=== PATIENT | female | born 1980 | race Caucasian/White ===

== ENCOUNTER 2023-07-18 17:38 | Inpatient (IN) ==
[2023-07-18] MEDS ORDERED: IOPAMIDOL 100 ML BOTTLE IV ONE (17:39)
[2023-07-18] MEDS: KETOROLAC 30 MG/ML VIAL IV ONE (18:11)
[2023-07-18 18:42] LABS: Basophils # (Auto) 0.02 K/mcL (0.00-0.30); Basophils % (Auto) 0.3 % (0.0-2.0); Eosinophils # (Auto) 0.09 K/mcL (0.00-0.70); Eosinophils % (Auto) 1.4 % (0.0-7.0); Hematocrit 32.3 % (34.1-44.9); Hemoglobin 10.4 g/dL (11.2-15.7); Mean Cell Volume 90.5 fL (80.0-100.0); Mean Corpuscular HGB Conc 32.2 g/dL (31.0-36.0); Monocytes # (Auto) 0.42 K/mcL (0.10-0.90); Monocytes % (Auto) 6.6 % (1.0-12.0); Neutrophils % (Auto) 61.4 % (38.0-78.0); Platelet Count 301 K/mcL (140-440); RBC 3.57 M/mcL (3.59-5.38); Red Cell Distribution Width 13.5 % (11.5-14.5); WBC 6.3 K/mcL (4.5-11.0)
[2023-07-18] MEDS: 0.9 % SODIUM CHLORIDE 1,000 ML IV ONE (19:08)
[2023-07-18 19:42] LABS: ALT/SGPT 11 U/L (<40); AST/SGOT 7 U/L (<32); Albumin 3.3 gm/dL (3.2-5.2); Alkaline Phosphatase 63 U/L (39-117); Bilirubin,Total < 0.2 mg/dL (0.1-1.0); Blood Urea Nitrogen 22 mg/dL (6-20); Calcium 9.3 mg/dL (8.6-10.4); Carbon Dioxide 25 mmol/L (22-30); Chloride 105 mmol/L (96-108); Globulin 3.2 gm/dL (2.2-3.7); Glomerular Filtration Rate 77; Glucose 131 mg/dL (70-105)
[2023-07-18] MEDS: PIPERACILLIN SODIUM/TAZOBACTAM 4.5 GM in DEXTROSE 5% IN WATER 50 ML IV ONE (19:51)
[2023-07-18] MEDS: GENTAMICIN SULFATE IV ONE (21:19)
[2023-07-18] MEDS: SODIUM CHLORIDE 0.9% IV ONE (21:19)
[2023-07-18] MEDS ORDERED: DEXTROSE 50% 50 ML VIAL IV PRN (22:00)
[2023-07-18] MEDS ORDERED: IPRATROPIUM/ALBUTEROL 3 ML AMPUL.NEB NEB PRN (22:00)
[2023-07-18] MEDS: VANCOMYCIN PER PHARMACY IV ONE (23:14)
[2023-07-18] MEDS: DEXTROSE 5%-LR 1,000 ML IV SCH (23:14)
[2023-07-18] MEDS: 0.9 % SODIUM CHLORIDE 10 ML SYRINGE IV SCH (23:16)
[2023-07-18] MEDS: INSULIN LISPRO 1 UNIT/0.01 ML UNIT SQ SCH (23:35)
[2023-07-18] MEDS: INSULIN LISPRO 1 UNIT/0.01 ML UNIT SQ ONE (23:36)
[2023-07-18] MEDS: VANCOMYCIN 1,000 MG in 0.9 % SODIUM CHLORIDE 250 ML IV ONE (23:36)
[2023-07-19] MEDS: morphine 4 MG/ML VIAL ONE (00:40)
[2023-07-19] MEDS: morphine 4 MG/ML VIAL IV PRN (00:41)
[2023-07-19] MEDS: PIPERACILLIN SODIUM/TAZOBACTAM 3.375 GM in DEXTROSE 5% IN WATER 50 ML IV SCH (02:26)
[2023-07-19] MEDS: INSULIN LISPRO 1 UNIT/0.01 ML UNIT SQ ONE (05:58)
[2023-07-19 06:24] LABS: Basophils # (Auto) 0.01 K/mcL (0.00-0.30); Basophils % (Auto) 0.2 % (0.0-2.0); Eosinophils # (Auto) 0.11 K/mcL (0.00-0.70); Eosinophils % (Auto) 2.1 % (0.0-7.0); Hematocrit 30.4 % (34.1-44.9); Hemoglobin 9.7 g/dL (11.2-15.7); Lymphocytes # (Auto) 1.93 K/mcL (1.50-4.80); Lymphocytes % (Auto) 36.1 % (15.5-49.0); Mean Cell Volume 90.2 fL (80.0-100.0); Mean Corpuscular HGB Conc 31.9 g/dL (31.0-36.0); Mean Platelet Volume 8.9 fL (8.8-12.5); Monocytes # (Auto) 0.42 K/mcL (0.10-0.90); Monocytes % (Auto) 7.9 % (1.0-12.0); Neutrophils % (Auto) 53.3 % (38.0-78.0); Platelet Count 281 K/mcL (140-440); RBC 3.37 M/mcL (3.59-5.38); Red Cell Distribution Width 13.4 % (11.5-14.5); WBC 5.4 K/mcL (4.5-11.0)
[2023-07-19] MEDS ORDERED: VANCOMYCIN PER PHARMACY IV SCH (06:30)
[2023-07-19 07:05] LABS: ALT/SGPT 10 U/L (<40); AST/SGOT 9 U/L (<32); Albumin 3.1 gm/dL (3.2-5.2); Albumin/Globulin Ratio 1.1 (1.0-2.3); Alkaline Phosphatase 55 U/L (39-117); Bilirubin,Total < 0.2 mg/dL (0.1-1.0); Blood Urea Nitrogen 21 mg/dL (6-20); Calcium 8.8 mg/dL (8.6-10.4); Carbon Dioxide 25 mmol/L (22-30); Chloride 107 mmol/L (96-108); Globulin 2.9 gm/dL (2.2-3.7); Glomerular Filtration Rate 77; Glucose 172 mg/dL (70-105)
[2023-07-19] MEDS: ACETAMINOPHEN 325 MG TABLET PO PRN (07:50)
[2023-07-19 07:53] LABS: Estimated Average Glucose(eAG) 154 mg/dL
[2023-07-19] MEDS: ONDANSETRON 4 MG/2 ML VIAL IV PRN (09:08)
[2023-07-19] MEDS: SPIRONOLACTONE 25 MG TABLET PO SCH (09:09)
[2023-07-19] MEDS: GABAPENTIN 100 MG CAPSULE PO SCH (09:09)
[2023-07-19] MEDS: CETIRIZINE 10 MG TABLET PO SCH (09:09)
[2023-07-19] MEDS: DULoxetine 30 MG CAPSULE PO SCH (09:09)
[2023-07-19] MEDS: LISINOPRIL 10 MG TABLET PO SCH (09:10)
[2023-07-19] MEDS: DOCUSATE SODIUM 100 MG CAPSULE PO SCH (09:13)
[2023-07-19] MEDS ORDERED: GADOBENATE DIMEGLUMINE 20 ML/VIAL IV ONE (11:00)
[2023-07-19] MEDS: PIPERACILLIN SODIUM/TAZOBACTAM 3.375 GM in DEXTROSE 5% IN WATER 100 ML IV SCH (11:23)
[2023-07-19] MEDS: PROCHLORPERAZINE 10 MG/2 ML VIAL IV PRN (11:23)
[2023-07-19] MEDS ORDERED: VANCOMYCIN 1,500 MG in 0.9 % SODIUM CHLORIDE 500 ML IV SCH (12:00)
[2023-07-19] MEDS ORDERED: IPRATROPIUM/ALBUTEROL 3 ML AMPUL.NEB NEB PRN ×2 (13:05→15:53)
[2023-07-19] MEDS ORDERED: KETAMINE 50 MG/ML Syringe IV ONE (13:58)
[2023-07-19] MEDS ORDERED: PROPOFOL 200 MG/20 ML VIAL IV ONE (13:58)
[2023-07-19] MEDS ORDERED: DEXAMETHASONE 10 MG/ML VIAL ONE (13:58)
[2023-07-19] MEDS ORDERED: ONDANSETRON 4 MG/2 ML VIAL ONE (13:58)
[2023-07-19] MEDS ORDERED: LIDOCAINE 2% PF 5 ML VIAL ONE (13:58)
[2023-07-19] MEDS ORDERED: MAGNESIUM SULFATE 2 GM/50 ML BAG IV ONE (15:32)
[2023-07-19] MEDS ORDERED: ONDANSETRON 4 MG/2 ML VIAL IV PRN (15:53)
[2023-07-19] MEDS ORDERED: MEPERIDINE 25 MG/ML VIAL IV PRN (15:53)
[2023-07-19] MEDS ORDERED: LACTATED RINGERS 250 ML IV PRN (15:53)
[2023-07-19] MEDS ORDERED: diphenhydrAMINE 50 MG/ML VIAL IV PRN (15:53)
[2023-07-19] MEDS ORDERED: fentaNYL 100 MCG/2 ML VIAL IV PRN (15:53)
[2023-07-19] MEDS ORDERED: NALOXONE HCL 0.4 MG/ML VIAL IV PRN (15:53)
[2023-07-19] MEDS ORDERED: PROMETHAZINE 25 MG/ML VIAL IV PRN (15:53)
[2023-07-19] MEDS: LACTATED RINGERS 1,000 ML IV SCH (18:06)
[2023-07-19] MEDS: INSULIN LISPRO 1 UNIT/0.01 ML UNIT SQ SCH (21:19)
[2023-07-19] MEDS: SENNOSIDES 1 TABLET PO SCH (21:20)
[2023-07-19] MEDS: 0.9 % SODIUM CHLORIDE 10 ML SYRINGE IV SCH (21:20)
[2023-07-20] MEDS: oxyCODONE IR 5 MG TABLET PO PRN ×2 (01:10→23:55)
[2023-07-20 06:15] LABS: Basophils # (Auto) 0.01 K/mcL (0.00-0.30); Basophils % (Auto) 0.1 % (0.0-2.0); Eosinophils # (Auto) 0 K/mcL (0.00-0.70); Eosinophils % (Auto) 0 % (0.0-7.0); Hematocrit 32.6 % (34.1-44.9); Hemoglobin 10.5 g/dL (11.2-15.7); Lymphocytes # (Auto) 1.09 K/mcL (1.50-4.80); Lymphocytes % (Auto) 14.1 % (15.5-49.0); Mean Cell Volume 89.3 fL (80.0-100.0); Mean Corpuscular HGB Conc 32.2 g/dL (31.0-36.0); Mean Platelet Volume 9.1 fL (8.8-12.5); Monocytes # (Auto) 0.41 K/mcL (0.10-0.90); Monocytes % (Auto) 5.3 % (1.0-12.0); Neutrophils % (Auto) 79.9 % (38.0-78.0); Platelet Count 323 K/mcL (140-440); RBC 3.65 M/mcL (3.59-5.38); Red Cell Distribution Width 13.2 % (11.5-14.5); WBC 7.7 K/mcL (4.5-11.0)
[2023-07-20 06:58] LABS: ALT/SGPT 10 U/L (<40); AST/SGOT 8 U/L (<32); Albumin 3.2 gm/dL (3.2-5.2); Albumin/Globulin Ratio 0.9 (1.0-2.3); Alkaline Phosphatase 62 U/L (39-117); Bilirubin,Total < 0.2 mg/dL (0.1-1.0); Blood Urea Nitrogen 22 mg/dL (6-20); Carbon Dioxide 24 mmol/L (22-30); Chloride 101 mmol/L (96-108); Globulin 3.5 gm/dL (2.2-3.7); Glomerular Filtration Rate 60; Glucose 285 mg/dL (70-105)
[2023-07-20] MEDS: INSULIN GLARGINE, HUMAN 1 UNIT/0.01 ML SQ SCH ×2 (12:08→20:33)
[2023-07-20] MEDS: oxyCODONE IR 5 MG TABLET PO ONE (23:59)
[2023-07-21] MEDS: oxyCODONE IR 5 MG TABLET PO ONE (05:01)
[2023-07-21 06:11] LABS: Basophils # (Auto) 0.02 K/mcL (0.00-0.30); Basophils % (Auto) 0.3 % (0.0-2.0); Eosinophils # (Auto) 0.12 K/mcL (0.00-0.70); Eosinophils % (Auto) 1.7 % (0.0-7.0); Hematocrit 30.3 % (34.1-44.9); Hemoglobin 9.7 g/dL (11.2-15.7); Lymphocytes # (Auto) 2.31 K/mcL (1.50-4.80); Lymphocytes % (Auto) 33.4 % (15.5-49.0); Mean Cell Volume 91.8 fL (80.0-100.0); Monocytes # (Auto) 0.61 K/mcL (0.10-0.90); Monocytes % (Auto) 8.8 % (1.0-12.0); Neutrophils % (Auto) 54.8 % (38.0-78.0); Platelet Count 291 K/mcL (140-440); Red Cell Distribution Width 13.5 % (11.5-14.5); WBC 6.9 K/mcL (4.5-11.0)
[2023-07-21 07:32] LABS: ALT/SGPT 9 U/L (<40); AST/SGOT 8 U/L (<32); Albumin/Globulin Ratio 0.9 (1.0-2.3); Alkaline Phosphatase 57 U/L (39-117); Bilirubin,Total < 0.2 mg/dL (0.1-1.0); Blood Urea Nitrogen 29 mg/dL (6-20); Calcium 8.8 mg/dL (8.6-10.4); Carbon Dioxide 26 mmol/L (22-30); Chloride 103 mmol/L (96-108); Globulin 3.3 gm/dL (2.2-3.7); Glomerular Filtration Rate 54; Glucose 189 mg/dL (70-105)
[2023-07-21] MEDS ORDERED: POLYETHYLENE GLYCOL 3350 17 GM PACKET PO PRN (09:01)
== END 2023-07-21 13:22 | DRG 629 ==
LOC: ED 17:38 → MEDSUR 21:49
PROVIDERS: ADMIT Internal Medicine; ATTEND Internal Medicine